=== PATIENT | female | born 1980 | race Caucasian/White ===

== ENCOUNTER → 2018-04-04 | Outpatient (CLI) | payer OTHER ==
--- NOTE | 2018-04-04 16:29 | US ---
EXAM DESCRIPTION: Pelvis Transvaginal CLINICAL HISTORY: PELVIS AND PERINEAL PAIN COMPARISON: None. TECHNIQUE: Real-time sonographic images of the pelvis are obtained transabdominally and transvaginally. FINDINGS: The uterus measures 11.4 x 7.6 x 8.9 cm. The uterus is normal positioning. The endometrium is mostly hyperechoic measuring 7.1mm in thickness. There is heterogeneous echogenicity of the myometrium. There is a large heterogeneous hypoechoic mass in the anterior uterine fundus measuring 6.0 x 8.2 x 6.4 cm that is mostly intramural, but results in mass effect on the endometrial canal. The right ovary measures 2.3 x 1.9 x 1.1cm. The left ovary measures 3.6 x 3.5 x 2.6cm. There is a 3.1 x 2.1 x 3.0 cm hypoechoic cyst with increased through transmission on the left ovary. Both ovaries show normal vascular flow. No abnormal adnexal mass or fluid collection is seen. IMPRESSION: Large intramural mass in the anterior uterine fundus measuring 8.2 cm most likely represents fibroid with mass effect on the endometrial canal. An IUD is not identified on today's exam. 3.1 cm indeterminate ovarian cyst Recommend pelvic US follow-up in 6-12 weeks; if unchanged, continue follow-up with US OR MRI with IV contrast - if follow-up studies do not confirm endometrioma or dermoid, consider surgical evaluation. If cyst has internal nodule without blood flow/enhancing, recommend pelvic MRI with IV contrast or surgical evaluation. Reference: Radiology 2009;256(3):943-86 Electronically signed by: Julian Reynolds MD 04/04/2018 4:28 PM CDT
== END ==
LOC: LAB.O 09:47
DX: Z00.00 Encounter for general adult medical examination without abnormal findings (principal); R10.2 Pelvic and perineal pain; R19.09 Other intra-abdominal and pelvic swelling, mass and lump; N83.202 Unspecified ovarian cyst, left side

== ENCOUNTER → 2018-04-10 | Outpatient (CLI) | payer OTHER ==
--- NOTE | 2018-04-10 13:15 | MAM ---
EXAM DESCRIPTION: 3D Diagnostic, Bilateral: Digital Mammography CLINICAL HISTORY: 38 yearsFemaleLUMP IN RIGHT BREAST . Probable lungs in the right breast. Nontender. No personal history or family history of breast cancer. Childbirth. Premenopausal. No HRT. Lifetime risk of developing breast cancer (Tyrer-Cuzick model) percentage is 11.1 COMPARISON: Baseline study at this facility.. No prior reports available.. TECHNIQUE: Bilateral CC LM MLO projection full-field images, digital mammographic tomosynthesis technique. Digital spot magnification 2-D technique left breast CAD not utilized. FINDINGS: The breast parenchymal density pattern is: Extremely dense breast tissue, which lowers the sensitivity of mammography. No skin thickening or nipple retraction skin markers approximately 900 clock position posterior lateral right breast and medial right breast retroareolar approximately 2 cm. Dense mass is with partially circumscribed margins similar density to the fibroglandular tissues. Similar smaller circumscribed mass densities lateral right breast. Scattered microcalcifications right breast. Heterogeneous calcifications in the medial posterior third of the left breast at the 9:00 - 10:00 clock position approximately 6 cm from the nipple. Some of these calcifications are bolus shaped on the LM and MLO images and round on the CC images consistent with milk of calcium cysts. Other calcifications are more heterogeneous and pleomorphic. Posterior fainter calcifications which may be peripheral around fibroglandular tissue. Unable to see the posterior extent of these calcifications on the CC image. Ultrasound: Scanning of the retroareolar right breast and lateral right breast. Large anechoic cysts with well-defined margins, parallel orientation and posterior enhancement features at the 100 clock position 1 cm from the nipple. Dimensions are 3.4 x 3.5 cm. At the 800 clock position 6 cm from the nipple is a similar appearing cystic mass measuring 2.6 x 2.1 cm. 2 more cysts are visible at the 10:00 position of the right breast 6 cm from the nipple in these cysts measure 3.3 x 3.4 cm and 3.3 x 1.9 cm. Again, anechoic, circumscribed margins, parallel orientation, and posterior enhancement features. Another cyst at the 9:00 position 6 cm from the nipple inferior to the previously described cysts measures 2.5 x 2.1 cm with same appearance and acoustic signature. Scanning of the left breast upper outer quadrant with emphasis at the 8:00 and 9:00 positions, 6 cm from the nipple. Mostly fibroglandular echotexture with minimal fatty echotexture. A cyst is visualized on image 21, with echogenic posterior features and posterior shadowing which could represent a milk of calcium cyst. No distinct solid mass. No large calcifications or parenchymal edema. No overlying skin changes or abnormal vascularity. IMPRESSION: Possible malignant calcifications posterior left breast. ASSESSMENT: BI-RADS CATEGORY 4: SUSPICIOUS. SUB-CATEGORY 4A - LOW SUSPICION FOR MALIGNANCY. RECOMMENDATIONS: Surgical consultation and tissue diagnosis should be considered. Calcifications would be amenable to mammographic guided wire localization and open biopsy or mammographic guided stereotactic biopsy. The FINDINGS and follow-up plan were reviewed in person with the patient following the examination. Written communication explaining the IMPRESSION and follow-up will be mailed to the patient and referring care provider. CRITICAL COMMUNICATION: The critical value was discussed directly by phone with Ms. Marge Noyola, Family Nurse Practitioner at approximately 1200 hours, on April 10, 2018. Electronically signed by: Raphael Wilson MD 04/10/2018 1:13 PM CDT
--- NOTE | 2018-04-10 13:18 | US ---
EXAM DESCRIPTION: Breast,Bilateral: Ultrasound CLINICAL HISTORY: 38 yearsFemaleLUMPS COMPARISON: Digital diagnostic tomosynthesis mammogram bilateral breast on this visit. TECHNIQUE: Transcutaneous scanning of the bilateral breast utilizing ramsay-scale and Doppler modes. Scanning performed by the manager welding and Dr. Wilson. FINDINGS: Scanning of the retroareolar right breast and lateral right breast. Large anechoic cysts with well-defined margins, parallel orientation and posterior enhancement features at the 100 clock position 1 cm from the nipple. Dimensions are 3.4 x 3.5 cm. At the 800 clock position 6 cm from the nipple is a similar appearing cystic mass measuring 2.6 x 2.1 cm. 2 more cysts are visible at the 10:00 position of the right breast 6 cm from the nipple in these cysts measure 3.3 x 3.4 cm and 3.3 x 1.9 cm. Again, anechoic, circumscribed margins, parallel orientation, and posterior enhancement features. Another cyst at the 9:00 position 6 cm from the nipple inferior to the previously described cysts measures 2.5 x 2.1 cm with same appearance and acoustic signature. Scanning of the left breast upper outer quadrant with emphasis at the 8:00 and 9:00 positions, 6 cm from the nipple. Mostly fibroglandular echotexture with minimal fatty echotexture. A cyst is visualized on image 21, with echogenic posterior features and posterior shadowing which could represent a milk of calcium cyst. No distinct solid mass. No large calcifications or parenchymal edema. No overlying skin changes or abnormal vascularity. IMPRESSION: 1. BI-RADS CATEGORY: 4 - SUSPICIOUS. SUB - CATEGORY 4B: MODERATE SUSPICION FOR MALIGNANCY. 2. Please refer to bilateral diagnostic digital breast tomosynthesis examination and report on this visit. The FINDINGS and various follow-up plans were reviewed in person with the patient after the examination. Written communication explaining the IMPRESSION and FOLLOW-UP will be mailed to the patient and referring care provider. CRITICAL COMMUNICATION: The critical value was discussed directly by phone with Ms. Marge Noyola, Family Nurse Practitioner at approximately 1200 hours, on April 10, 2018. Electronically signed by: Raphael Wilson MD 04/10/2018 1:17 PM CDT
== END ==
LOC: MAMMO 10:30
DX: R92.8 Other abnormal and inconclusive findings on diagnostic imaging of breast (principal)
CPT/HCPCS: 76641; 77066; G0279